=== PATIENT | male | born 1945 | race Caucasian/White ===

== ENCOUNTER 2020-09-10 17:57 | Outpatient (REF) | payer BC, SELFPAY | END 2020-09-10 17:58 | disposition home or self-care (01) | LOC: HO.LAB 17:57 | PROVIDERS: PCP Internal Medicine; Visit Provider Internal Medicine | DX: Z20.828 Contact with and (suspected) exposure to other viral communicable diseases (principal) | CPT/HCPCS: 87635 ==

== ENCOUNTER 2024-01-11 12:49 | Outpatient (AMB) | payer BC, SELFPAY ==
[2024-01-11 13:18] VITALS: BP 126/70; PULSE 59; BMI 28.5
--- NOTE | 2024-01-11 13:18 | HO.NEPHOV ---
HPI HPI Comments History of Present Illness Details I had the privilege of seeing Vitaliy in follow-up of his chronic kidney disease. He has history of hypertension and his blood pressure is well controlled on the current medication regimen. He has chronic AFib and aortic root dilatation. He is not a diabetic. He has history of coronary artery disease needing stenting. He does not have any history of congestive heart failure, CVA, SWAPNA, carotid stenosis or peripheral arterial disease. He is not a smoker. He has no history of significant proteinuria. He denies taking excess nonsteroidal anti-inflammatories. His renal functions have been stable. [facility] Medical History (Updated 01/22/24 @ 14:52 by Anjel Hernandez MD) Sinus node dysfunction Pure hypercholesterolemia Prostatism Periodic limb movement disorder Obstructive sleep apnea Essential (primary) hypertension Dyspnea on exertion Displacement of lumbar intervertebral disc without myelopathy Depressive disorder Chronic kidney disease Chronic atrial fibrillation Aortic root dilatation Abdominal aortic aneurysm Surgical History History of cholecystectomy History of coronary artery stent placement History of back surgery Family History Father Heart disease Hypertension Sister Diabetes Social History Alcohol intake: never Patient Tobacco Use Status: Former Tobacco user Vital Signs 01/11/24 13:18 Height 6 ft Weight 210 lb 6 oz BMI 28.5 BP 126/70 Blood Pressure Location Rt brachial Position Sitting Pulse 59 Pulse Source Pulse Oximeter Physical Exam Vital Signs: Last Vital Signs Pulse 59 01/11/24 13:18 BP 126/70 01/11/24 13:18 BMI result Body Mass Index 28.5 Const General: comfortable and no acute distress Orientation/consciousness: patient oriented x3 HEENT Head: Yes normocephalic Mouth: Normal oral and palatal mucosa present Eyes EOM: EOMs intact bilaterally Neck Neck: Yes supple Resp Auscultation: clear to auscultation bilaterally Cardio Jugular venous distension: no JVD Rate: regular rate GI Palpation (GI): Soft to palpation Auscultation: normal bowel sounds General: Yes no CVA tenderness Back/Spine/Pelvis Back: no CVA tenderness Skin General skin exam: no rashes or lesions noted Neuro General: patient oriented x3 and moves all extremities Extrem General: Yes no pedal edema Assessment & Plan Assessment & Plan (1) Hypertension: Code(s): I10 - Essential (primary) hypertension Qualifiers: Hypertension type: primary hypertension Qualified Code(s): I10 - Essential (primary) hypertension (2) CKD (chronic kidney disease) stage 3, GFR 30-59 ml/min: Code(s): N18.30 - Chronic kidney disease, stage 3 unspecified Qualifiers: Chronic kidney disease stage 3 subtype: stage 3a (GFR 45-59) Qualified Code(s): N18.31 - Chronic kidney disease, stage 3a Plan Vitaliy has stage III CKD from vascular disease. He is known to have coronary artery disease. His renal functions have been stable. He had Doppler of renal arteries done in the past which did not show any renal artery stenosis. He needs to follow-up with vascular surgery regarding aneurysm. His blood pressure is maintained at goal. He is on statins. I did not make any medication changes today. Follow-up blood work ordered. Answered all questions. Orders: Orders Blood Urea Nitrogen 01/11/24 N18.30 - Chronic kidney disease, stage 3 unspecified, I10 - Essential (primary) hypertension Creatinine 01/11/24 N18.30 - Chronic kidney disease, stage 3 unspecified, I10 - Essential (primary) hypertension Electrolytes 01/11/24 N18.30 - Chronic kidney disease, stage 3 unspecified, I10 - Essential (primary) hypertension Protein Creatinine Ratio, Ur 01/11/24 N18.30 - Chronic kidney disease, stage 3 unspecified, I10 - Essential (primary) hypertension Coding Level of Care Code Est Pt Level 3 (52431) Diagnoses Primary hypertension I10 Hypertension type: primary hypertension Stage 3a chronic kidney disease N18.31 Chronic kidney disease stage 3 subtype: stage 3a (GFR 45-59) Results Reviewed Nephrology Results: No Data to Display
== END 2024-01-11 13:53 | disposition home or self-care (01) ==
PROVIDERS: PCP Internal Medicine; Visit Provider Internal Medicine Nephrology
DX: I10 Essential (primary) hypertension (principal); N18.31 Chronic kidney disease, stage 3a
CPT/HCPCS: 99213

== ENCOUNTER → 2024-01-11 12:49 | Outpatient (BNVA) | payer BC, SELFPAY | PROVIDERS: PCP Internal Medicine; Visit Provider Internal Medicine Nephrology ==

== ENCOUNTER 2024-08-25 14:55 | Outpatient (AMB) | payer BC, SELFPAY ==
--- NOTE | 2024-08-25 14:59 | HO.NEPHOV_ITS ---
Vital Signs 08/25/24 15:01 Height 6 ft Weight 221 lb 4 oz BMI 30.0 BP 132/78 Blood Pressure Location Rt brachial Position Sitting Pulse 68 Pulse Source Pulse Oximeter Pulse Oximetry (%) 93 Oxygen Delivery Method Room Air Intake Visit Reasons: Rscng missed 07/11 appt- Conf Screw Machine Hand Required: No Accompanied by: Self / Same As Patient Allergies No Known Allergies Allergy (Verified 08/25/24 15:02) HPI Comments Details: I had the privilege of seeing Vitaliy in follow-up of his chronic kidney disease. He has history of hypertension and his blood pressure is well controlled on the current medication regimen. He has chronic AFib and aortic root dilatation. He is not a diabetic. He has history of coronary artery disease needing stenting. He does not have any history of congestive heart failure, CVA, SWAPNA, carotid stenosis or peripheral arterial disease. He is not a smoker. He has no history of significant proteinuria. He denies taking excess nonsteroidal anti- inflammatories. His renal functions have been stable. [facility] Medical History (Updated 01/22/24 @ 14:52 by Anjel Hernandez MD) Sinus node dysfunction Pure hypercholesterolemia Prostatism Periodic limb movement disorder Obstructive sleep apnea Essential (primary) hypertension Dyspnea on exertion Displacement of lumbar intervertebral disc without myelopathy Depressive disorder Chronic kidney disease Chronic atrial fibrillation Aortic root dilatation Abdominal aortic aneurysm Surgical History History of cholecystectomy History of coronary artery stent placement History of back surgery Family History Father Heart disease Hypertension Sister Diabetes Social History Alcohol intake: never Patient Tobacco Use Status: Former Tobacco user Review of Systems Const All systems reviewed & are unremarkable except as noted in HPI and below Physical Exam Vital Signs: Last Vital Signs Pulse 68 08/25/24 15:01 BP 132/78 08/25/24 15:01 Pulse Ox 93 08/25/24 15:01 Oxygen Delivery Method Room Air 08/25/24 15:01 BMI result Body Mass Index 30.0 Const General: comfortable and no acute distress Orientation/consciousness: patient oriented x3 HEENT Head: Yes normocephalic Mouth: Normal oral and palatal mucosa present Eyes EOM: EOMs intact bilaterally Neck Neck: Yes supple Resp Auscultation: clear to auscultation bilaterally Cardio Jugular venous distension: no JVD Rate: regular rate GI Palpation (GI): Soft to palpation Auscultation: normal bowel sounds General: Yes no CVA tenderness Back/Spine/Pelvis Back: no CVA tenderness Skin General skin exam: no rashes or lesions noted Neuro General: patient oriented x3 and moves all extremities Extrem General: Yes no pedal edema Results Reviewed Nephrology Results: No Data to Display Assessment & Plan Assessment & Plan (1) CKD (chronic kidney disease) stage 3, GFR 30-59 ml/min: Code(s): N18.30 - Chronic kidney disease, stage 3 unspecified Category: Medical Qualifiers: Chronic kidney disease stage 3 subtype: stage 3a (GFR 45-59) Qualified Code(s): N18.31 - Chronic kidney disease, stage 3a (2) Hypertension: Code(s): I10 - Essential (primary) hypertension Category: Medical Qualifiers: Hypertension type: primary hypertension Qualified Code(s): I10 - Essential (primary) hypertension Plan Vitaliy has stage III CKD from vascular disease. He is known to have coronary artery disease. His renal functions have been stable. He had Doppler of renal arteries done in the past which did not show any renal artery stenosis. He needs to follow-up with vascular surgery regarding aneurysm. His blood pressure is maintained at goal. He is on statins. I did not make any medication changes today. Follow-up blood work ordered. Answered all questions Orders: Orders Creatinine 6 Months I10 - Essential (primary) hypertension, N18.31 - Chronic kidney disease, stage 3a Electrolytes 6 Months I10 - Essential (primary) hypertension, N18.31 - Chronic kidney disease, stage 3a Blood Urea Nitrogen 6 Months I10 - Essential (primary) hypertension, N18.31 - Chronic kidney disease, stage 3a Calcium 6 Months I10 - Essential (primary) hypertension, N18.31 - Chronic kidney disease, stage 3a Coding Level of Care Code Est Pt Level 4 (89188) Diagnoses Stage 3a chronic kidney disease N18.31 Chronic kidney disease stage 3 subtype: stage 3a (GFR 45-59) Primary hypertension I10 Hypertension type: primary hypertension
[2024-08-25 15:01] VITALS: BP 132/78; PULSE 68; O2SAT 93
== END 2024-08-25 15:14 | disposition home or self-care (01) ==
PROVIDERS: PCP Internal Medicine; Visit Provider Internal Medicine Nephrology
DX: I12.9 Hypertensive chronic kidney disease with stage 1 through stage 4 chronic kidney disease, or unspecified chronic kidney disease (principal); N18.31 Chronic kidney disease, stage 3a
CPT/HCPCS: 99214

== ENCOUNTER → 2024-08-25 14:55 | Outpatient (BNVA) | payer BC, SELFPAY | PROVIDERS: PCP Internal Medicine; Visit Provider Internal Medicine Nephrology ==

== ENCOUNTER 2025-02-17 13:41 | Outpatient (REF) | payer BC, SELFPAY ==
[2025-02-17 15:07] LABS: Anion Gap 11 (12-20); Blood Urea Nitrogen 27 mg/dL (9-16); Calcium 9.9 mg/dL (8.4-10.2); Carbon Dioxide 26 mmol/L (22-29); Chloride 107 mmol/L (96-108); Estimated Glomerular Filt Rate 55; Potassium 4.5 mmol/L (3.3-5.1); Sodium 139 mmol/L (135-145)
== END 2025-02-17 13:42 | disposition home or self-care (01) ==
LOC: HO.LAB 13:41
PROVIDERS: PCP Internal Medicine; Visit Provider Internal Medicine Nephrology
DX: I12.9 Hypertensive chronic kidney disease with stage 1 through stage 4 chronic kidney disease, or unspecified chronic kidney disease (principal); N18.31 Chronic kidney disease, stage 3a
CPT/HCPCS: 36415; 80051; 82310; 82565; 84520

== ENCOUNTER 2025-02-18 13:40 | Outpatient (AMB) | payer BC, SELFPAY ==
[2025-02-18 13:44] VITALS: BP 116/60; PULSE 61; O2SAT 95; BMI 28.9
--- NOTE | 2025-02-18 13:44 | HO.NEPHOV ---
Vital Signs 02/18/25 13:44 Height 6 ft Weight 213 lb BMI 28.9 BP 116/60 Blood Pressure Location Rt brachial Position Sitting Pulse 61 Pulse Source Pulse Oximeter Pulse Oximetry (%) 95 Oxygen Delivery Method Room Air Intake Visit Reasons: CKD-Conf Guidance Counselor Required: No Accompanied by: Self / Same As Patient Allergies No Known Allergies Allergy (Verified 02/18/25 13:44) HPI Comments Details: Vitaliy was seen in follow-up of his chronic kidney disease. He has history of hypertension and his blood pressure is well controlled on the current medication regimen. He has chronic AFib and aortic root dilatation. He is not a diabetic. He has history of coronary artery disease needing stenting. He does not have any history of congestive heart failure, CVA, SWAPNA, carotid stenosis or peripheral arterial disease. He is not a smoker. He has no history of significant proteinuria. He denies taking excess nonsteroidal anti-inflammatories. His renal functions have been stable. [facility] Medical History (Updated 01/22/24 @ 14:52 by Anjel Hernandez MD) Sinus node dysfunction Pure hypercholesterolemia Prostatism Periodic limb movement disorder Obstructive sleep apnea Essential (primary) hypertension Dyspnea on exertion Displacement of lumbar intervertebral disc without myelopathy Depressive disorder Chronic kidney disease Chronic atrial fibrillation Aortic root dilatation Abdominal aortic aneurysm Surgical History History of cholecystectomy History of coronary artery stent placement History of back surgery Family History Father Heart disease Hypertension Sister Diabetes Social History Alcohol intake: never Patient Tobacco Use Status: Former Tobacco user Review of Systems Const All systems reviewed & are unremarkable except as noted in HPI and below Physical Exam Vital Signs: Last Vital Signs Pulse 61 02/18/25 13:44 BP 116/60 02/18/25 13:44 Pulse Ox 95 02/18/25 13:44 Oxygen Delivery Method Room Air 02/18/25 13:44 BMI result Body Mass Index 28.9 Const General: comfortable and no acute distress Orientation/consciousness: patient oriented x3 HEENT Head: Yes normocephalic Mouth: Normal oral and palatal mucosa present Eyes EOM: EOMs intact bilaterally Neck Neck: Yes supple Resp Auscultation: clear to auscultation bilaterally Cardio Jugular venous distension: no JVD Rate: regular rate GI Palpation (GI): Soft to palpation Auscultation: normal bowel sounds General: Yes no CVA tenderness Back/Spine/Pelvis Back: no CVA tenderness Skin General skin exam: no rashes or lesions noted Neuro General: patient oriented x3 and moves all extremities Extrem General: Yes no pedal edema Results Reviewed Nephrology Results: Sodium 139 mmol/L (135-145) 02/17/25 Potassium 4.5 mmol/L (3.3-5.1) 02/17/25 Chloride 107 mmol/L (96-108) 02/17/25 Carbon Dioxide 26 mmol/L (22-29) 02/17/25 BUN 27 mg/dL (9-16) H 02/17/25 Creatinine 1.26 mg/dL (0.5-1.4) 02/17/25 Calcium 9.9 mg/dL (8.4-10.2) 02/17/25 Assessment & Plan Assessment & Plan (1) CKD (chronic kidney disease) stage 3, GFR 30-59 ml/min: Code(s): N18.30 - Chronic kidney disease, stage 3 unspecified Category: Medical Qualifiers: Chronic kidney disease stage 3 subtype: stage 3a (GFR 45-59) Qualified Code(s): N18.31 - Chronic kidney disease, stage 3a (2) Hypertension: Code(s): I10 - Essential (primary) hypertension Category: Medical Qualifiers: Hypertension type: primary hypertension Qualified Code(s): I10 - Essential (primary) hypertension Plan Vitaliy has stage III CKD from vascular disease. He is known to have coronary artery disease. His renal functions have been stable. He had Doppler of renal arteries done in the past which did not show any renal artery stenosis. He needs to follow-up with vascular surgery regarding aneurysm. His blood pressure is maintained at goal. He is on statins. I did not make any medication changes today. Follow-up blood work ordered. Answered all questions Orders: Orders Blood Urea Nitrogen 6 Months I10 - Essential (primary) hypertension, N18.31 - Chronic kidney disease, stage 3a Electrolytes 6 Months I10 - Essential (primary) hypertension, N18.31 - Chronic kidney disease, stage 3a Creatinine 6 Months I10 - Essential (primary) hypertension, N18.31 - Chronic kidney disease, stage 3a Calcium 6 Months I10 - Essential (primary) hypertension, N18.31 - Chronic kidney disease, stage 3a Protein Creatinine Ratio, Ur 6 Months I10 - Essential (primary) hypertension, N18.31 - Chronic kidney disease, stage 3a Coding Level of Care Code Est Pt Level 4 (62207) Diagnoses Stage 3a chronic kidney disease N18.31 Chronic kidney disease stage 3 subtype: stage 3a (GFR 45-59) Primary hypertension I10 Hypertension type: primary hypertension
--- OUTSIDE RECORDS SUMMARY | 2025-02-18 16:18 | XMS_ITS | Clinical Summary ---
Author Organization [address] Address [address] [place] [id number] Phone Care Team Providers Care Tube Coater Name Role Phone Mustapha Gonzalez MD Primary Care Provider [phone] Medications atorvastatin (LIPITOR) 80 mg tabletIndications:C oronary artery disease involving [place] coronary artery of [place] heart without angina pectoris,Hyperlipid emia, unspecified hyperlipidemia type Take 1 tablet (80 mg total) by mouth 1 (one) time each day. 90 each 3 4 10/28/20 25 Active Surgical History Surgery Date Site/Laterality Comments COLONOSCOPY 02/20/2018 PROCEDURE: HISTORICAL COLONOSCOPY; COMMENT: multiple adenomas; tics and hemorrhoids; repeat in 3 yrs UPPER GASTROINTESTINAL ENDOSCOPY 02/20/2018 PROCEDURE: [place] UPPER GI ENDOSCOPY PERFORMED; COMMENT: distal erosive esophagitis; esophageal diverticum; gastric bxys neg for H. pylori/significant gastritis COLONOSCOPY 09/11/2011 PROCEDURE: HISTORICAL COLONOSCOPY; COMMENT: small polyp at 50 cm: Tubular adenoma. CHOLECYSTECTOMY 05/16/2018 PROCEDURE: LAPAROSCOPY, CHOLECYSTECTOMY; COMMENT: Dr. Fontaine Medical History Medical History Date Comments Pure hypercholesterolemia 01/25/2006 DX:Pur e hypercholesterolemia Personal history of colonic polyps DX:Personal history of colonic polyps Anxiety disorder in conditio ns classified elsewhere DX:Anxiety disorder in condi tions classified elsewhere Other specified cardiac dysrhythmias(427.89) DX:Other specified cardiac dysrhythmias(427.89); COMMENT: bradycardia, Holter (-) 07/30 Depressive disorder, not els ewhere classified 01/23/2007 DX:Depressive disorder, not elsewhere classified Allergy, unspecified not els ewhere classified 04/18/2007 DX:Allergy, unspecified not elsewhere classified Sinoatrial node dysfunction (CMS/HCC) 07/19/2007 DX:Sinoatrial node dysfunction (HCC); COMMENT: Lam elena, CARDIOLOGY SAW PT 2003 Family History Medical History Relation Name Comments Heart attack Father age 53 Other: ETOH liver disease Mother Other: arthritis, liver failure from medication Sister 1 Arthritis Sister 2 hx TKR's Relation Name Status Comments Father Mother Sister 1 Sister 2 Social History Tobacco Use Types Packs/Day Years Used Date Smoking Tobacco: Former Cigarettes 1 54.7 0 [birth year]/26/1954 - 07/27/2009 Smokeless Tobacco: Never Alcohol Use Standard Drinks/Week Comments No 0 (1 standard drink = 0.6 oz pur e alcohol) Sex and Gender Information Value Date Recorded Sex Assigned at Male 11/28/2024 11:45 AM EST Legal Sex Male 8:09 AM EST Gender Identity Male 11/28/2024 11:45 AM EST Sexual Orientation Straight 11/28/2024 11 :45 AM EST Obstetrics History Last Filed Vital Signs Vital Sign Reading Time Taken Comments Blood Pressure 120/68 07/30/2024 9:43 AM EDT Sit ting L Arm Pulse 54 07/30/2024 9:43 AM EDT Temperature - - Respiratory Rate - - Oxygen Saturation - - Inhaled Oxygen Concentration - - Weight 99.8 kg (220 lb) 07/30/2024 9:43 AM EDT Height 182.9 cm (6') 07/30/2024 9:43 AM EDT Body Mass Index 29.84 07/30/2024 9:43 AM EDT Plan of Treatment Health Maintenance Due Date Last Done Comments Zoster Vaccines (2 of 3) 09/15/2013 07/21/2013 RSV Immunization Patients 60+ Years Old (1 - 1-dose 75+ series) 2018 Depression Screening 11/04/2022 Falls Risk Assessment 11/04/2022 Social Influencers of Health Screening 11/04/2022 COVID-19 Vaccine ( season) 2024 11/08/2021, 04/20/2021, 03/16/2021 Influenza Vaccine (#1) 2024 , 08/31/2022, 10/10/2021, Additional history exists Hypertension/CHF/CAD Annual BMP Blood Test 07/30/2025 07/30/2024 DTaP,Tdap,and Td Vaccines (3 - Td or Tdap) 12/19/2029 12/19/2019, 12/09/2008 Cholesterol Screening (Lipid Panel) 01/29/2030 01/29/2025, 10/28/2024, 07/30/2024 Pneumococcal Vaccine: 50+ Years Completed 11/08/2018, 10/24/2011, 06/24/2003 HIB Vaccines Aged Out No longer eligi ble based on patient's age to complete this topic HPV Vaccines Aged Out No longer eligi ble based on patient's age to complete this topic Hepatitis A Vaccines Aged Out No long er eligible based on patient's age to complete this topic Hepatitis B Vaccines Aged Out No long er eligible based on patient's age to complete this topic IPV Vaccines Aged Out No longer eligi ble based on patient's age to complete this topic MMR Vaccines Aged Out No longer eligi ble based on patient's age to complete this topic Meningococcal ACWY Vaccine Aged Out N o longer eligible based on patient's age to complete this topic Meningococcal B Vacine Aged Out No lo nger eligible based on patient's age to complete this topic RSV Immunization Patients Under 20 months Aged Out No longer eligible based on patient's age to complete this topic Varicella Vaccines Aged Out No longer eligible based on patient's age to complete this topic Procedures Procedure Name Priority Date/Time Associated Diagnosis Comments LIPID PANEL WITH REFLEX TO DIRECT LDL Routine 01/29/2025 9:15 AM EST Coronary artery disease involving [place] coronary artery of [place] heart without angina pectoris Hyperlipidemia, unspecified hyperlipidemia type from Last 3 Months Results * Lipid panel with reflex to direct LDL (01/29/2025 9:15 AM EST) Cholesterol 135 0 - 200 mg/dL LAB CHEMISTRY METHOD 01/29/2025 1:05 PM [facility] Triglycerides 70 0 - 150 mg/dL LAB CHEMISTRY METHOD 01/29/2025 1:05 PM [facility] HDL 50 >=40 mg/dL LAB CHEMISTRY METHOD 01/29/2025 1:05 PM EST [facility] LDL Calculated 71 0 - 100 mg/dL LAB CHEMISTRY METHOD 01/29/2025 1:05 PM EST [facility] VLDL Cholesterol Jason 14 mg/dL LAB CHEMISTRY METHOD 01/29/2025 1:05 PM EST [facility] Non HDL Chol. (LDL+VLDL) 85 <145 mg/dL LAB CHEMISTRY METHOD 01/29/2025 1:05 PM [facility] Chol/HDL Ratio 2.7 0.0 - 4.4 LAB CHEMISTRY METHOD 01/29/2025 1:05 PM EST [facility] Blood Venous blood specimen / Unknown Venipuncture / Unknown 01/29/2025 9:15 AM EST 01/29/2025 9:15 AM EST Larisa Pacheco OB TECH LAB BLOOD ORDERABLES Final Result Performing Organization Address City/State/[facility] Co de Phone Number [facility] [address] [place] [address], from Last 3 Months Insurance [facility] MEDICARE Care Teams Tube Coater Relationship Specialty Start Date End Date Mustapha Gonzalez MD [address] [place] [id number] PCP - General 11/09/22
--- OUTSIDE RECORDS SUMMARY | 2025-02-18 16:18 | XMS_ITS | Clinical Summary ---
Author Organization [facility] Address [address] [address] Phone Care Team Providers Care Radiologist Diagnostic Name Role Phone Jack Ahumada MD Primary Care Provider [phone] Allergies No known active allergies Medications amLODIPine (NORVASC) 5 MG tablet Take 5 mg by mouth 1 (one) time each day Active atorvastatin (LIPITOR) 40 MG tablet Take 1 tablet by mouth 1 (one) time each day 2 Active fluticasone (FLONASE) 50 MCG/ACT nasal spray Administer 100 mcg into affected nostril(s) 1 Active FLUoxetine (PROzac) 10 MG capsule Take 1 capsule by mouth 1 (one) time each day 2 Active rivaroxaban (XARELTO) 15 MG tablet Take 15 mg by mouth 1 (one) time each day 2 Active clopidogrel (PLAVIX) 75 MG tablet Take 75 mg by mouth 1 (one) time each day 2 Active buPROPion (ZYBAN) 150 MG 12 hr tablet Take 150 mg by mouth 1 (one) time each day Do not crush, chew, or split. Active Coenzyme Q10 100 MG tablet Take 100 mg by mouth 1 (one) time each day Active Multiple Vitamin (multivitamin) tablet Take 1 tablet by mouth 1 (one) time each day Active traMADol (ULTRAM) 50 MG tablet Take 1 tablet by mouth if needed 3 Active Active Problems Problem Noted Date Diagnosed Date Stage 3a chronic kidney disease 01/11/2023 Hypertension 10/03/2022 Coronary arteriosclerosis 09/11/2022 Overview (10/03/2022): Last Assessment & Plan: S/p PCI to RCA x2. Continue Plavix, he is also on Xarelto. He will be starting cardiac rehab at [facility] in the near future, referral sent. History of cardiac catheterization 09/11/2022 Overview (10/03/2022): Done at [facility] [place] on 08/07/22 with ALBA - indications: Abnormal stress treadmill study, VUONG Ex-smoker 06/15/2022 Stage 3 chronic kidney disease 11/08/2018 Hypertensive disorder 2011 Resolved Problems Problem Noted Date Diagnosed Date Resolved Date Aortic root dilatation 01/12/202108/14 Dyspnea on exertion 01/12/2021 08/14/20 Aneurysm of ascending aorta 07/22/2020 08/14/2022 Prostatism 06/23/2019 08/14/2022 Chronic atrial fibrillation 02/12/2018 08/14/2022 Obstructive sleep apnea 07/08/201707/27 Overview (08/14/2022): [facility]: Date 07/03/2017; Wt 200# SE 83%; SM 96%; REM 27%; RDI 14 (AHI 10), worse in REM (RDI 21 - AHI 17), Central apneas 18; Obstructive apneas 10; Mixed apneas 0; hypopneas 34; RERAs 30; average oxygen saturation 93% (lowest 84% - without saturations <88% for 5% or more of study); PLMs 39. [facility] Polysomnogram treatment study. Date 02/11/2018 . SE 34 % SM 37 %; spent 0 % of the study in REM. On CPAP - central apnea emergence; on CPAP 10 best of study: RDI 10.5 (AHI 10.5), Central apneas 0; Obstructive apneas 0; Mixed apneas 0; hypopneas 4; RERAs 0; and, average oxygen saturation was 95%. For the entire study, PLMs ~46. [facility] Polysomnogram ASV treatment study. Date 05/27/2018. SE 39 % SM 42 %; spent 0 % of the study in REM. On ASV; RDI 10.4 (AHI 5.9), Central apneas 5; Obstructive apneas 0; Mixed apneas 0; hypopneas 8; RERAs 10; and, average oxygen saturation was 95%. For the entire study, PLMs ~157. Periodic limb movement disorder 07/08/2017 08/14/2022 Abdominal aortic aneurysm 10/22/2012 Overview (08/14/2022): Follows with Dr. Rankin, 3.2cm Displacement of lumbar inter vertebral disc without myelopathy 11/17/2011 08/14/2022 Overview (08/14/2022): S/p disksectomy, Dr. Marquez Sinus node dysfunction 07/19/200708/14 Overview (08/14/2022): RAN elena, CARDIOLOGY SAW PT 2004 Depressive disorder 01/23/2007 08/14/20 22 Overview (08/14/2022): Does not respond to welbutrin. SSRI caused sexual dysfunction Pure hypercholesterolemia 01/25/2006 Immunizations Name Administration Dates Next Due H1N1 Inj Preservative Free 11/25/2009 Influenza Split High Dose Pr eservative Free IM 10/10/2021,09/28/2019,08/25/2018,09/02,08/12/2016,08/12/2015 Pneumococcal Conjugate 13-Valent 11/08/2018 Pneumococcal Polysaccharide 10/24/2011, 3 Tdap 12/09/2008 Zoster 07/21/2013 Family History Medical History Relation Comments Heart disease Father Hypertension Father Diabetes Sister Relation Status Comments Father Mother Sister Social History Tobacco Use Types Packs/Day Years Used Date Smoking Tobacco: Former Cigarettes Smokeless Tobacco: Never Tobacco Cessation:Counseling Given: Not Answered Alcohol Use Standard Drinks/Week Comments Never 0 (1 standard drink = 0.6 oz pur e alcohol) Sex and Gender Information Value Date Recorded Sex Assigned at Not on file Legal Sex Male 1:38 PM EDT Gender Identity Not on file Sexual Orientation Not on file Last Filed Vital Signs Vital Sign Reading Time Taken Comments Blood Pressure 120/82 07/17/2023 2:17 PM EDT Pulse 60 07/17/2023 2:17 PM EDT Temperature - - Respiratory Rate - - Oxygen Saturation - - Inhaled Oxygen Concentration - - Weight 100 kg (220 lb 6.4 oz) 07/17/2023 2:17 PM EDT Height - - Body Mass Index - - Plan of Treatment Health Maintenance Due Date Last Done Comments Influenza Vaccine (#1) 2024 , 09/28/2019, 08/25/2018, Additional history exists Pneumococcal Vaccine: 65+ Years Completed 11/08/2018, 10/24/2011, 06/24/2003 Hepatitis B Vaccine Aged Out No longe r eligible based on patient's age to complete this topic Insurance [facility] Care Teams Radiologist Diagnostic Relationship Specialty Start Date End Date Jack Ahumada MD [address] [place] [id number] PCP - General Internal Medicine 10/03/22
== END 2025-02-18 13:56 | disposition home or self-care (01) ==
LOC: HO.HKA 13:41
PROVIDERS: PCP Internal Medicine; Visit Provider Internal Medicine Nephrology
DX: N18.31 Chronic kidney disease, stage 3a (principal); I10 Essential (primary) hypertension
CPT/HCPCS: 99214

== ENCOUNTER 2025-08-21 13:31 | Outpatient (AMB) | payer BC, SELFPAY ==
--- OUTSIDE RECORDS SUMMARY | 2025-07-13 08:03 | XMS_ITS ---
Author Organization [facility] Address [address] [place] [address] [phone] Care Team Providers Care Hoop Punch And Coiler Operator Name Role Phone LUCRECIA CALDERON Primary Care Provider [phone] REASON FOR VISIT rtd call Encounters Encounter Location Date Provider Diagnosis [facility] [address] [facility] [place] [address] 07/13/2025 LUCRECIA CALDERON PLAN OF TREATMENT No Information
--- OUTSIDE RECORDS SUMMARY | 2025-07-13 10:00 | XMS_ITS ---
Author Organization [facility] Address [address] [place] [phone] Care Team Providers Care Mouthpiece Maker Name Role Phone LUCRECIA CALDERON Primary Care Provider [phone] ALLERGIES No Known Allergies REASON FOR VISIT go over test results MEDICATIONS Medication SIG (Take, Route, Frequency, Duration) Notes Start Date End Date Status Tamsulosin HCl 0.4 MG 1 capsule Orally O nce a day for 30 day(s) 07/13/2025 Active Fluticasone Propionate 50 MCG/ACT spray 2 spray by intranasal route every day in each nostril Nasal 05/11/2022 Active amLODIPine Besylate 5 MG 1 tablet Orally Once a day Active Magnesium 125 MG as directed Orally Active traMADol HCl 50 MG 1 tablet as needed O rally every 8 hrs for 10 days 04/16/2025 Active FLUoxetine HCl 10 MG 1 capsule Orally On ce a day for 90 days Active Atorvastatin Calcium 80 MG 1 tablet Oral ly Once a day for 90 day(s) 12/03/2024 Active Xarelto 15 MG 1 tablet with food O rally Once a day for 90 days Active buPROPion HCl ER (XL) 150 MG 1 tablet in the morning Orally Once a day for 180 days Active OneTouch Verio - as directed In Vitro once a day for 90 days 01/22/2024 Active Atorvastatin Calcium 80 MG 1 tablet Oral ly Once a day Active OneTouch Verio Flex System w/Device as directed applied to skin once a day for 90 day(s) 01/22/2024 Active OneTouch Delica Plus [id number] - as directed applied to skin once a day for 90 days 01/22/2024 Active Ketoconazole 2 % as directed External ly twice a week for 30 day(s) 01/22/2024 Active SOCIAL HISTORY Tobacco Use: Social History Observation Description Date Details (start date - stop date) Never Smoker NA - NA Sex Assigned At : Social History Observation Description Sex Assigned At Unknown Smoking Question Answer Notes Are you a: never smoker VITAL SIGNS Height 72.00 in 07/13/2025 Weight 215 lbs 07/13/2025 Blood pressure systolic 118 mm Hg 07/13/20 25 Blood pressure diastolic 76 mm Hg 025 BMI 29.16 kg/m2 07/13/2025 Encounters Encounter Location Date Provider Diagnosis [facility] [address] [place] [address] 07/13/2025 LUCRECIA CALDERON Mediastinal mass J98.59 ; Kidney stone N20.0 ; Aneurysm of ascending aorta without rupture I71.21 ; Saccular aneurysm I67.1 ; Essential (primary) hypertension I10 and Paroxysmal atrial fibrillation I48.0 ASSESSMENTS Encounter Date Diagnosis Assessment Notes Treatment Notes Treatment Clinical Notes Section Notes 07/13/2025 Mediastinal mass (ICD-10 - J98.59) 1. Mediastinal mass/paratrachea l lymph node. Will pursue PET scan as recommended by radiology. There is no other recent imaging of his chest 2. Kidney stone: Will start Flomax to see if this assists with passage. Will await urology recommendations next week 3. Thoracic aortic aneurysm: This appears stable in size compared to last year's echo. Will continue to follow 4. Saccular aortic aneurysm: Surgical consultation was recommended. This has been arranged for next week 5. Paroxysmal atrial fibrillation: No obvious recurrence. Continues on Xarelto 07/13/2025 Kidney stone (ICD-10 - N20.0) 1. Mediastinal mass/paratrachea l lymph node. Will pursue PET scan as recommended by radiology. There is no other recent imaging of his chest 2. Kidney stone: Will start Flomax to see if this assists with passage. Will await urology recommendations next week 3. Thoracic aortic aneurysm: This appears stable in size compared to last year's echo. Will continue to follow 4. Saccular aortic aneurysm: Surgical consultation was recommended. This has been arranged for next week 5. Paroxysmal atrial fibrillation: No obvious recurrence. Continues on Xarelto 07/13/2025 Aneurysm of ascending aorta without rupture (ICD-10 - I71.21) 1. Mediastinal mass/paratrachea l lymph node. Will pursue PET scan as recommended by radiology. There is no other recent imaging of his chest 2. Kidney stone: Will start Flomax to see if this assists with passage. Will await urology recommendations next week 3. Thoracic aortic aneurysm: This appears stable in size compared to last year's echo. Will continue to follow 4. Saccular aortic aneurysm: Surgical consultation was recommended. This has been arranged for next week 5. Paroxysmal atrial fibrillation: No obvious recurrence. Continues on Xarelto 07/13/2025 Saccular aneurysm (ICD-10 - I67.1) 1. Mediastinal mass/paratrachea l lymph node. Will pursue PET scan as recommended by radiology. There is no other recent imaging of his chest 2. Kidney stone: Will start Flomax to see if this assists with passage. Will await urology recommendations next week 3. Thoracic aortic aneurysm: This appears stable in size compared to last year's echo. Will continue to follow 4. Saccular aortic aneurysm: Surgical consultation was recommended. This has been arranged for next week 5. Paroxysmal atrial fibrillation: No obvious recurrence. Continues on Xarelto 07/13/2025 Essential (primary) hypertension (ICD-10 - I10) 1. Mediastinal mass/paratrachea l lymph node. Will pursue PET scan as recommended by radiology. There is no other recent imaging of his chest 2. Kidney stone: Will start Flomax to see if this assists with passage. Will await urology recommendations next week 3. Thoracic aortic aneurysm: This appears stable in size compared to last year's echo. Will continue to follow 4. Saccular aortic aneurysm: Surgical consultation was recommended. This has been arranged for next week 5. Paroxysmal atrial fibrillation: No obvious recurrence. Continues on Xarelto 07/13/2025 Paroxysmal atrial fibrillation (ICD-10 - I48.0) 1. Mediastinal mass/paratrachea l lymph node. Will pursue PET scan as recommended by radiology. There is no other recent imaging of his chest 2. Kidney stone: Will start Flomax to see if this assists with passage. Will await urology recommendations next week 3. Thoracic aortic aneurysm: This appears stable in size compared to last year's echo. Will continue to follow 4. Saccular aortic aneurysm: Surgical consultation was recommended. This has been arranged for next week 5. Paroxysmal atrial fibrillation: No obvious recurrence. Continues on Xarelto PLAN OF TREATMENT Medication Medication Name Sig Start Date Stop Date Notes Tamsulosin HCl 0.4 MG 1 capsule Orally O nce a day for 30 day(s) 07/13/2025 Progress Notes * Examination Category Sub-Category Detail Notes Category Not es General Examination Heart: RSR, normal S1S2 Lungs: clear to auscultatio n Extremities: no edema General Appearance no apparent distress , pleasant Psych: alert, oriented X 3 Other normal affect History and Physical Notes * HPI (History of Present Illness) Category Sub-Category Detail Notes Category Not es General Patient present s for follow-up testing. He has an appointment with vascular next Sunday for his saccular aortic aneurysm. He has an appointment with urology regarding kidney stone. He is still having some crampy right sided abdominal pain intermittently. He is not having any further nausea or vomiting. Today we also reviewed his CT scan of his chest.
--- OUTSIDE RECORDS SUMMARY | 2025-07-31 06:55 | XMS_ITS ---
Author Organization [facility] Address [address] [place] [address] [phone] Care Team Providers Care Med Spec Name Role Phone LUCRECIA CALDERON Primary Care Provider REASON FOR VISIT PET Scan Order Encounters Encounter Location Date Provider Diagnosis [facility] [address] [place] [address] 07/31/2025 LUCRECIA CALDERON Mediastinal mass J98.59 ASSESSMENTS Encounter Date Diagnosis Assessment Notes Treatment Notes Treatment Clinical Notes Section Notes 07/31/2025 Mediastinal mass (ICD-10 - J98.59) PLAN OF TREATMENT No Information
--- OUTSIDE RECORDS SUMMARY | 2025-08-05 05:33 | XMS_ITS ---
Author Organization [facility] Address [address] [place] [phone] Care Team Providers Care Wholesale Parts Salesperson Name Role Phone LUCRECIA CALDERON Primary Care Provider REASON FOR VISIT (2) PET Scan Results Encounters Encounter Location Date Provider Diagnosis [facility] [address] [place] [address] 08/05/2025 LUCRECIA CALDERON PLAN OF TREATMENT No Information
--- OUTSIDE RECORDS SUMMARY | 2025-08-05 11:45 | XMS_ITS ---
Author Organization [facility] [facility] Address [address] [place] [phone] Care Team Providers Care Rail Signal Worker Name Role Phone LUCRECIA CALDERON Primary Care Provider ALLERGIES No Known Allergies REASON FOR REFERRAL Reason 08/06/25 w appt Urge nt eval Abnormal PET scAN please send ct scan and PET Diagnosis 1 Lymphadenopathy (R59 .1) Referral Organization [facility] Referring Provider First Name LUCRECIA Referring Provider Last Name YUMIKO Referring Provider Speciality Internal M edicine Referred Provider DREW CAMPBELL Referred Provider Specialty Hematology/O ncology General Notes HOLD, ANU,Paulina P Adm in 08/05/2025 04:17:00 PM > faxed medical referral, note and most recent labs to [phone] requesting a STAT appt please>also faxed is, 07/04/25CTChest, 07/04/25CTAbd/Pelvis, NO REFERRAL REQUIRED Referral Priority Stat REASON FOR VISIT f/u PET scan, discuss flu vacc MEDICATIONS Medication SIG (Take, Route, Frequency, Duration) Notes Start Date End Date Status Fluticasone Propionate 50 MCG/ACT spray 2 spray by intranasal route every day in each nostril Nasal 05/11/2022 Active Magnesium 125 MG as directed Orally Active OneTouch Delica Plus [id number] - as directed applied to skin once a day for 90 days 01/22/2024 Active Ketoconazole 2 % as directed External ly twice a week for 30 day(s) 01/22/2024 Active Xarelto 15 MG 1 tablet with food O rally Once a day for 90 days Active Atorvastatin Calcium 80 MG 1 tablet Oral ly Once a day for 90 day(s) 12/03/2024 Active FLUoxetine HCl 10 MG 1 capsule Orally On ce a day for 90 days Active traMADol HCl 50 MG 1 tablet as needed O rally every 8 hrs for 10 days 04/16/2025 Active amLODIPine Besylate 5 MG 1 tablet Orally Once a day Active OneTouch Verio - as directed In Vitro once a day for 90 days 01/22/2024 Active buPROPion HCl ER (XL) 150 MG 1 tablet in the morning Orally Once a day for 180 days Active Tamsulosin HCl 0.4 MG 1 capsule Orally O nce a day 07/13/2025 Active OneTouch Verio Flex System w/Device as directed applied to skin once a day for 90 day(s) 01/22/2024 Active SOCIAL HISTORY Tobacco Use: Social History Observation Description Date Details (start date - stop date) Former Smoker NA - NA Sex Assigned At : Social History Observation Description Sex Assigned At Unknown Smoking Question Answer Notes Are you a: former smoker How long has it been since you last smoked? > 10 years PROBLEMS Problem Type ICD Code Onset Dates Problem Status W/U Status Risk SNOMED Code Notes Problem Enlarged prostate (N40.0) Active confirmed [id number] VITAL SIGNS Height 72.00 in 08/05/2025 Weight 216.0 lbs 08/05/2025 Blood pressure systolic 124 mm Hg 08/05/20 25 Blood pressure diastolic 84 mm Hg 025 BMI 29.29 kg/m2 08/05/2025 Encounters Encounter Location Date Provider Diagnosis [facility] [address] [place] [address] 08/05/2025 [facility] Lymphadenopathy R59. 1 ; Enlarged prostate N40.0 ; Kidney stone N20.0 and Saccular aneurysm I67.1 ASSESSMENTS Encounter Date Diagnosis Assessment Notes Treatment Notes Treatment Clinical Notes Section Notes 08/05/2025 Lymphadenopathy (ICD-10 - R59.1) 1. Lymphadenopathy : ? possible lymphoma -mildly + PEt on paratracheal node - some nodes lighting up in neck ? not large enough to biopsy. Will refer to Heme/onc for guidance 2. enlarged Prostate - also lighting up on PET Scan Discussed pitfalls of PSA Will discuss with Oncology as welland consider whether wants to pursue further 3. Kidney stone: Urology agreed with Flomax and will recheck scan in several months. If not passed it we will consider retrieval/litho tripsy then 4. Saccular aortic aneurysm: Vascular reviewed and recommended 6-month follow-up. He did not feel he needed surgery at this time 08/05/2025 Enlarged prostate (ICD-10 - N40.0) 1. Lymphadenopathy : ? possible lymphoma -mildly + PEt on paratracheal node - some nodes lighting up in neck ? not large enough to biopsy. Will refer to Heme/onc for guidance 2. enlarged Prostate - also lighting up on PET Scan Discussed pitfalls of PSA Will discuss with Oncology as welland consider whether wants to pursue further 3. Kidney stone: Urology agreed with Flomax and will recheck scan in several months. If not passed it we will consider retrieval/litho tripsy then 4. Saccular aortic aneurysm: Vascular reviewed and recommended 6-month follow-up. He did not feel he needed surgery at this time 08/05/2025 Kidney stone (ICD-10 - N20.0) 1. Lymphadenopathy : ? possible lymphoma -mildly + PEt on paratracheal node - some nodes lighting up in neck ? not large enough to biopsy. Will refer to Heme/onc for guidance 2. enlarged Prostate - also lighting up on PET Scan Discussed pitfalls of PSA Will discuss with Oncology as welland consider whether wants to pursue further 3. Kidney stone: Urology agreed with Flomax and will recheck scan in several months. If not passed it we will consider retrieval/litho tripsy then 4. Saccular aortic aneurysm: Vascular reviewed and recommended 6-month follow-up. He did not feel he needed surgery at this time 08/05/2025 Saccular aneurysm (ICD-10 - I67.1) 1. Lymphadenopathy : ? possible lymphoma -mildly + PEt on paratracheal node - some nodes lighting up in neck ? not large enough to biopsy. Will refer to Heme/onc for guidance 2. enlarged Prostate - also lighting up on PET Scan Discussed pitfalls of PSA Will discuss with Oncology as welland consider whether wants to pursue further 3. Kidney stone: Urology agreed with Flomax and will recheck scan in several months. If not passed it we will consider retrieval/litho tripsy then 4. Saccular aortic aneurysm: Vascular reviewed and recommended 6-month follow-up. He did not feel he needed surgery at this time PLAN OF TREATMENT Medication Medication Name Sig Start Date Stop Date Notes Tamsulosin HCl 0.4 MG 1 capsule Orally Once a day 07/13/20 25 Referrals Referral Date Details 08/06/25 w appt Urge nt eval Abnormal PET scAN please send ct scan and PET, DREW CAMPBELL Progress Notes * Examination Category Sub-Category Detail Notes Category Not es General Examination Heart: RSR, normal S1S2 Lungs: clear to auscultatio n Extremities: no edema General Appearance no apparent distress , pleasant, overweight Psych: alert, oriented X 3 Other normal affect History and Physical Notes * HPI (History of Present Illness) Category Sub-Category Detail Notes Category Not es General Patient here fo f/u PET scan. Patient is feeling about the same. He is having episodic pain related to the kidney stone. Supposed to have repeat scan in 2-3 months. Continued on Flomax at present. Saw [facility] as well - repeat scan in 6 months recommneded Consultation Request Notes Referral Date Referring Provider Referred Provider Not es 08/05/2025 LUCRECIA CALDERON AGNES 08/06/25 w appt Urgent eval Abnormal PET scAN please send ct scan and PET
--- OUTSIDE RECORDS SUMMARY | 2025-08-21 10:45 | XMS_ITS | Encounter Summary ---
Author Organization [facility] Address [address] [place] [address] Care Team Providers Care Physical Security Manager Name Role Phone Jack Ahumada MD Primary Care Provider Reason for Referral * Consultation (Routine) - Pending Review Specialty Diagnoses / Procedures Referred By Contac t Referred To Contact Thoracic Surgery Diagnoses Lymphadenopathy Abnormal positron emission tomography (PET) scan Shahbaz George MD [address] [place] [address] Phone: tel: fax: Thom Alston MD [address] [address] Phone: tel: fax: Referral ID Status Reason Start Date Expiration Date Visits Requested Visits Authorized [id number] Pending Review Specialty Services Required 08/21/2025 08/21/2026 1 1 Reason for Visit * Reason Comments Consult * Consultation (Routine) - Authorized Specialty Diagnoses / Procedures Referred By Contac t Referred To Contact Hematology and Oncology Diagnoses Lymphadenopathy Abnormal positron emission tomography (PET) scan Jack Ahumada MD [address] [place] [id number] Phone: tel: fax: Referral ID Status Reason Start Date Expiration Date Visits Requested Visits Authorized [id number] Authorized Specialty Services Required 08/07/2025 08/07/2026 1 1 Encounter Details Date Type Department Care Team (Late st Contact Info) Description 08/21/2025 10:45 AM EDT Office Visit [facility] Hematology Oncology [address] [place] [address] Shahbaz George MD [address] [place] [address] Lymphadenopathy; Abnormal positron emission tomography (PET) scan Social History Tobacco Use Types Packs/Day Years Used Date Smoking Tobacco: Former Cigarettes 1 54.7 0 11/26/1954 - 07/27/2009 Smokeless Tobacco: Never Alcohol Use Standard Drinks/Week Comments Yes 0 (1 standard drink = 0.6 oz pur e alcohol) occasional Sex and Gender Information Value Date Recorded Sex Assigned at Male 11/28/2024 11:45 AM EST Legal Sex Male 8:09 AM EST Gender Identity Male 11/28/2024 11:45 AM EST Sexual Orientation Straight 11/28/2024 11 :45 AM EST documented as of this encounter Last Filed Vital Signs Vital Sign Reading Time Taken Comments Blood Pressure 109/75 08/21/2025 10:47 AM EDT Pulse 79 08/21/2025 10:47 AM EDT Temperature 36.6 C (97.8 F) 08/21/2025 10:47 AM EDT Respiratory Rate - - Oxygen Saturation 93% 08/21/2025 10:47 AM EDT Inhaled Oxygen Concentration - - Weight 97.1 kg (214 lb) 08/21/2025 10:47 AM EDT Height 182.9 cm (6') 08/21/2025 10:47 AM EDT Body Mass Index 29.02 08/21/2025 10:47 AM EDT documented in this encounter Progress Notes * Shahbaz George MD - 08/21/2025 10:45 AM EDT ONC CANCER INITIAL VISIT Dear Jack, Thank you very much for referring this patient for consultation. HPI: Patient is a very pleasant 80-year-old man, who was having some renal colic, abdominal pain, nausea vomiting few weeks ago, went to hospital and during hospitalization patient had a CT scanthat showed renal calculi, as well as there is some suspicious enlargement of right paratracheal lymph node, for that reason (specially because patient has more than 30-vguv-wvcm smoking history) patient underwent PET scan, PET scan showed some mild FDG activity in the right paratracheal enlarged lymph node as well as 6 some nonenlarged lymph node also have some FDG activity. Patient referred to me for evaluation of this positive PET scan and enlarged lymph node, patient apparently has been seeing Dr. Linares regarding his nephrolithiasis, will be having follow-up scan and further intervention,patient has been feeling fair, patient review of system is as follows ROS: GENERAL: No anorexia, unintentional weight loss, fever, chills, night sweats or any significant fatigue HEENT no headache no visual symptom NECK: No lumps, goiter, pain or significant neck swelling RESPIRATORY: Has on and off chronic cough but no hemoptysis and shortness of breath except on exertion CARDIOVASCULAR: No significant chest pain. GI: No more abdominal discomfort, blood in stools or black stools denies any hematuria or blood in urine except when he passed a urinary stone he noticed some blood that particular day MUSCULOSKELETAL: No new unusual aches and pain HEMATOLOGY/LYMPHOLOGY No prolonged bleeding, easy bruisability or swollen nodes Other Systems review is non contributory PAST MEDICAL HISTORY: Hypertension Coronary artery disease Aortic root dilatation Paroxysmal atrial fibrillation Obstructive sleep apnea COPD Dyslipidemia AV block Nephrolithiasis History of nicotine addiction PAST SURGICAL HISTORY: Cholecystectomy EGD/colonoscopy SOCIAL HISTORY: He quit smoking in 2008, has 50+ pack-year smoking history Used to drink socially He is lives with his Used to work in construction FAMILY HISTORY: Noncontributory MEDICATIONS: Current Outpatient Medications: amLODIPine (NORVASC) 5 mg tablet, Take 1 tablet (5 mg total) by mouth 1 (one) time each day., Disp:, Rfl: atorvastatin (LIPITOR) 80 mg tablet, Take 1 tablet (80 mg total) by mouth 1 (one) time each day., Disp: 90 each, Rfl: 3 buPROPion SR (WELLBUTRIN SR) 150 mg 12 hr tablet, Take 1 tablet (150 mg total) by mouth 1 (one) time each day. Do not crush, chew, or split., Disp: , Rfl: cholecalciferol (Vitamin D3) 50 mcg (2,000 unit) capsule, Take 2 capsules (4,000 Units total) by mouth 1 (one) time each day., Disp: , Rfl: coenzyme Q-10 100 mg capsule, Take 1 capsule (100 mg total) by mouth 1 (one) time each day., Disp: , Rfl: FLUoxetine (PROzac) 10 mg capsule, Take 1 capsule (10 mg total) by mouth 1 (one) time each day., Disp: , Rfl: FLUTICASONE PROPIONATE NASL, Administer into affected nostril(s) 1 (one) time each day., Disp: , Rfl: isosorbide mononitrate (IMDUR) 30 mg 24 hr tablet, Take 1 tablet (30 mg total) by mouth 1 (one) time each day. Do not crush or chew., Disp: 30 each, Rfl: 11 multivitamine, geriatric, (Multivitamin 50 Plus) tablet, Take 1 tablet by mouth 1 (one) time each day., Disp: , Rfl: rivaroxaban (XARELTO) 15 mg tablet, Take 1 tablet (15 mg total) by mouth 1 (one) time each day. Take with food., Disp: , Rfl: tamsulosin (FLOMAX) 0.4 mg 24 hr capsule, Take 1 capsule (0.4 mg total) by mouth 1 (one) time each day with breakfast. Capsules should be taken 30 minutes following the same meal each day., Disp: , Rfl: traMADoL (ULTRAM) 50 mg tablet, Take 1 tablet (50 mg total) by mouth every 8 (eight) hours if needed for severe pain., Disp: , Rfl: No Known Allergies PHYSICAL EXAM: Visit Vitals BP 109/75 (BP Location: Left arm, Patient Position: Sitting, BP Cuff Size: Adult) Pulse 79 Temp 36.6 ??C (97.8 ??F) (Temporal) Ht 1.829 m (72 ) Wt 97.1 kg (214 lb) SpO2 93% BMI 29.02 kg/m?? Smoking Status Former BSA 2.19 m?? ECOG 0-1 APPEARANCE: Alert and oriented in no acute distress EYES: nonicteric sclera pink conjunctiva ORAL CAVITY: No erythema or exudates NECK: Neck supple, no significantly enlarged adenopathy, HEART: normal S1 and S2 LUNG: Distant breath sound otherwise clear bilaterally LYMPH NODES: No palpable superficial adenopathy ABDOMEN: Obese, distended, soft, nontender and no organomegaly appreciated. EXTREMITIES: No significant edema, erythema or tenderness LABS: PET CT scan showed Enlarged right paratracheal lymph node with mildly FDG activity. There are also few nonenlarged lymph node with mild FDG activity in cervical area which are nonspecific, could be reactive/inflammatory Heterogeneous mildly increased FDG activity throughout the prostate gland ASSESSMENT 1. Lymphadenopathy 2. Abnormal positron emission tomography (PET) scan After reviewing history physical and scan, patient has mild right paratracheal lymph node FDG activity as well as some nonspecific mild FDG activity in nonenlarged cervical lymph node, most likely these are reactive lymphadenopathy but because patient has history of more than 35-terp-hjan smoking, I would like him to be evaluated by Dr. Yamileth Pacheco for possible tissue sampling versus follow-up with scan I discussed with the patient and his about his abdominal scan as well as FDG activity in prostate gland could be suggestive of low-grade prostate malignancy or prostatitis etc. but since patienthas been seeing Dr. Linares (urologist), I am not concerned about further intervention. Patient also have some hypertrophy of bladder that could be due to nephrolithiasis but I will defer to Dr. Linares,question of cystoscopy I explained patient and his in detail about PET scan finding and rationale of sending him to , I told patient and his to continue close follow-up with Dr. Linares PLAN: I will see him back in couple months but earlier if any issues, please call me for any question Shahbaz George MD cc: Jack Ahumada MD documented in this encounter Plan of Treatment Upcoming Encounters Date Type Department Care Team (Late st Contact Info) Description 09/04/2025 9:40 AM EDT Office Visit [facility] [address] [facility] [address] [place] [address] Janeth Keller NP [address] [facility] [address] [place] [address] 10/12/2025 8:30 AM EST Office Visit [facility] Hematology Oncology [address] [place] [phone] Shahbaz George MD [address] [place] [address] Scheduled Referrals Name Type Priority Associated Diagnoses Order Schedule Ambulatory referral to Thoracic Surgery Outpatient Referral Routine Lymphadenopathy Abnormal positron emission tomography (PET) scan Expected: 09/04/2025, Expires: 08/21/2026 documented as of this encounter Visit Diagnoses Diagnosis Lymphadenopathy Enlargement of lymph nodes Abnormal positron emission tomography (PET) scan documented in this encounter Orders Outpatient Referral Count Last Ordered Date Fir st Ordered Date AMB REFERRAL TO HEMATOLOGY / ONCOLOGY 1 documented in this encounter Care Teams Physical Security Manager Relationship Specialty Start Date End Date Jack Ahumada MD [address] [place] [id number] PCP - General Internal Medicine 08/07/25 documented as of this encounter
--- NOTE | 2025-08-21 13:34 | HO.NEPHOV ---
Vital Signs 08/21/25 13:37 Height 6 ft Weight 214 lb 6 oz BMI 29.1 BP 90/62 Blood Pressure Location Lt brachial Position Sitting Pulse 92 Pulse Source Pulse Oximeter Pulse Oximetry (%) 93 Oxygen Delivery Method Room Air Intake Visit Reasons: -[facility] Commissioned Police Officer Required: No Accompanied by: Self / Same As Patient Allergies No Known Allergies Allergy (Verified 08/21/25 13:37) HPI Comments Details: Vitaliy was seen in follow-up of his chronic kidney disease. He has history of hypertension and his blood pressure is well controlled on the current medication regimen. He has chronic AFib and aortic root dilatation. He is not a diabetic. He has history of coronary artery disease needing stenting. He does not have any history of congestive heart failure, CVA, SWAPNA, carotid stenosis or peripheral arterial disease. He is not a smoker. He has no history of significant proteinuria. He denies taking excess nonsteroidal anti-inflammatories. His renal functions have been stable. He recently had right sided renal calculus and was seen by Dr Linares. He also had lymphnodes and had undergone PET and oncology consult- going for biopsy. [facility] Medical History (Updated 08/21/25 @ 13:47 by Anjel Hernandez MD) Sinus node dysfunction Pure hypercholesterolemia Prostatism Periodic limb movement disorder Obstructive sleep apnea Essential (primary) hypertension Dyspnea on exertion Displacement of lumbar intervertebral disc without myelopathy Depressive disorder Chronic kidney disease Chronic atrial fibrillation Aortic root dilatation Abdominal aortic aneurysm Surgical History History of cholecystectomy History of coronary artery stent placement History of back surgery Family History Father Heart disease Hypertension Sister Diabetes Social History Alcohol intake: never Patient Tobacco Use Status: Former Tobacco user Review of Systems Const All systems reviewed & are unremarkable except as noted in HPI and below Physical Exam Vital Signs: Last Vital Signs Pulse 92 08/21/25 13:37 BP 90/62 08/21/25 13:37 Pulse Ox 93 08/21/25 13:37 Oxygen Delivery Method Room Air 08/21/25 13:37 BMI result Body Mass Index 29.1 Const General: comfortable and no acute distress Orientation/consciousness: patient oriented x3 HEENT Head: Yes normocephalic Mouth: Normal oral and palatal mucosa present Eyes EOM: EOMs intact bilaterally Neck Neck: Yes supple Resp Auscultation: clear to auscultation bilaterally Cardio Jugular venous distension: no JVD Rate: regular rate GI Palpation (GI): Soft to palpation Auscultation: normal bowel sounds General: Yes no CVA tenderness Back/Spine/Pelvis Back: no CVA tenderness Skin General skin exam: no rashes or lesions noted Neuro General: patient oriented x3 and moves all extremities Extrem General: Yes no pedal edema Assessment & Plan Assessment & Plan (1) CKD (chronic kidney disease) stage 3, GFR 30-59 ml/min: Code(s): N18.30 - Chronic kidney disease, stage 3 unspecified Category: Medical Qualifiers: Chronic kidney disease stage 3 subtype: stage 3a (GFR 45-59) Qualified Code(s): N18.31 - Chronic kidney disease, stage 3a (2) Hypertension: Code(s): I10 - Essential (primary) hypertension Category: Medical Qualifiers: Hypertension type: primary hypertension Qualified Code(s): I10 - Essential (primary) hypertension (3) Renal calculus: Code(s): N20.0 - Calculus of kidney Category: Medical Plan Vitaliy has stage III CKD from vascular disease. He is known to have coronary artery disease. His renal functions have been stable. He had Doppler of renal arteries done in the past which did not show any renal artery stenosis. He needs to follow-up with vascular surgery regarding aneurysm. His blood pressure is maintained at goal. He is on statins. He needs Urology and Oncology follow up. I shall consider switching him from Amlodipine to HCTZ/K citrate when his current issues are resolved. I did not make any medication changes today. Follow-up blood work ordered. Answered all questions Orders: Orders Uric Acid 6 Months I10 - Essential (primary) hypertension, N18.31 - Chronic kidney disease, stage 3a, N20.0 - Calculus of kidney Electrolytes 6 Months I10 - Essential (primary) hypertension, N18.31 - Chronic kidney disease, stage 3a, N20.0 - Calculus of kidney Blood Urea Nitrogen 6 Months I10 - Essential (primary) hypertension, N18.31 - Chronic kidney disease, stage 3a, N20.0 - Calculus of kidney Creatinine 6 Months I10 - Essential (primary) hypertension, N18.31 - Chronic kidney disease, stage 3a, N20.0 - Calculus of kidney Calcium 6 Months I10 - Essential (primary) hypertension, N18.31 - Chronic kidney disease, stage 3a, N20.0 - Calculus of kidney Coding Level of Care Code Est Pt Level 4 (60505) Diagnoses Stage 3a chronic kidney disease N18.31 Chronic kidney disease stage 3 subtype: stage 3a (GFR 45-59) Primary hypertension I10 Hypertension type: primary hypertension Renal calculus N20.0
[2025-08-21 13:37] VITALS: BP 90/62; PULSE 92; O2SAT 93; BMI 29.1
--- OUTSIDE RECORDS SUMMARY | 2025-08-21 14:49 | XMS_ITS | Patient Health Record ---
Author Organization [facility] Address [address] [place] [address] Care Team Providers Care Pc Analyst Name Role Phone Mica SERNA, Desiree Amaya Primary Care Provider Unav ailable Black, Meaghan Unavailable [phone] Reason For Referral No Information Medications Medication SIG (Take, Route, Frequency, Duration) Notes Start Date End Date Status Multivitamin Active CoQ-10 200 MG Orally Once a day Active Aspirin 325 MG 1 tablet Orally Once a day Active Atorvastatin Calcium 20 MG 1 tablet Oral ly Once a day Active Triamterene-HCTZ 37.5-25 MG Orally Once a day Active ZyrTEC Active Glucosamine Chondr 1500 Complx Active Social History Tobacco use other than smoking: Question Answer Notes Are you an other tobacco user? No Problems Problem Type SNOMED Code ICD Code Onset Dates Problem Status W/U Status Risk Notes Problem Acquired hallux valgus (59619703) Hallux valgus (acquired), left foot (M20.12) Active confirmed Problem Acquired hallux valgus (83190462) Hallux valgus (acquired), right foot (M20.11) Active confirmed Problem Acquired hammer toe of right foot ([id number] 105) Other hammer toe(s) (acquired), right foot (M20.41) Active confirmed Problem Acquired hammer toe of left foot ([id number] 103) Other hammer toe(s) (acquired), left foot (M20.42) Active confirmed Plan Of Treatment No Information Insurance Providers Payer Name Payer Address Payer Phone Subscriber Number Group Number Insured Name Patient Relationship to Insured Coverage Start Date Coverage End Date [employer] [address] [place] [address] [phone] [id number] Chelsea Serra Spouse - patient is the spouse of the insured Medical (General) History Medical History History ICD Code Arthritis Back,Hip,and Knee pain CAD (Cholesterol) Measles Mumps Chicken pox High blood pressure Aorta - enlarged Surgical History Surgery Date(Month/Year) back surgery
--- OUTSIDE RECORDS SUMMARY | 2025-08-21 14:49 | XMS_ITS | Patient Health Record ---
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 Attached last locked note from 11/2024. Note dated 06/29/[address] Dr. Calderon on vacation, will send the note once locked. The following is copied from the unlocked note......, ' Patient present with several episodes of crampy lower abdominal pain - that turns into nausea and vomiting. Throat feels burned afterwards - does not raise a lot when vomiting. Most recent episode was this morning and is left him feeling wiped out. He has been more fatigued lately and also having some increased shortness of breath. notes that he is less tolerant of exertion due to his breathing. He has not noticed any blood in the stool or urine. ' Faxed all to [facility] at [phone], Jane BRENNAN [place] 07/08/2025 03:18:22 PM > refaxed again as pt encounter states [facility] never received a request for an appointment faxed to F: [phone], Paulina BRENNAN P Admin 07/09/2025 07:56:54 AM > Dr Calderon locked note from 06/29>all info refaxed to [facility] at [phone] Referral Priority Urgent Reason (Faxed 07/07/25) Appt New patient urgent Please send abdominal CT Diagnosis 1 Kidney stone (N20.0) Referral Organization [facility] [employer] Referring Provider First Name LUCRECIA Referring Provider Last Name YUMIKO Referring Provider Speciality Internal M edicine Referred Provider NATHALY OSPINA Referred Provider Specialty Urology General Notes Andreina BRENNAN Medical Records Library Professor 07/07/2025 10:38:19 AM > Urgent request for Urology. Attached last locked note from 11/2024. Note dated 06/29/[address]. Calderon on vacation, will send the note once locked. The following is copied from the unlocked note......, ' Patient present with several episodes of crampy lower abdominal pain - that turns into nausea and vomiting. Throat feels burned afterwards - does not raise a lot when vomiting. Most recent episode was this morning and is left him feeling wiped out. He has been more fatigued lately and also having some increased shortness of breath. notes that he is less tolerant of exertion due to his breathing. He has not noticed any blood in the stool or urine. ' Faxed all to [facility] at [phone]., Paulina BRENNAN P Admin 07/20/2025 01:32:34 PM > per incoming document p thas appt on 07/[address] [facility] [facility] [address] Timur Ospina>no referral required>faxed to [facility] at [phone]>encounter closed Referral Priority Urgent Referral Appointment Date 07/20/2025 Reason 08/06/25 w appt Urg ent eval Abnormal PET scAN please send ct scan and PET Diagnosis 1 Lymphadenopathy (R59 .1) Referral Organization [facility] Referring Provider First Name LUCRECIA Referring Provider Last Name YUMIKO Referring Provider Speciality Internal M edicine Referred Provider DREW CAMPBELL Referred Provider Specialty Hematology/O ncology General Notes HOLD, Paulina BRENNAN Adm in 08/05/2025 04:17:00 PM > faxed medical referral, note and most recent labs to [phone] requesting a STAT appt please>also faxed is, 07/04/25CTChest, 07/04/25CTAbd/Pelvis, NO REFERRAL REQUIRED Referral Priority Stat MEDICATIONS Medication SIG (Take, Route, Frequency, Duration) Notes Start Date End Date Status Tamsulosin HCl 0.4 MG 1 capsule Orally O nce a day 07/13/2025 Active Xarelto 15 MG 1 tablet with food O rally Once a day for 90 days Active Atorvastatin Calcium 80 MG 1 tablet Oral ly Once a day for 90 day(s) 12/03/2024 Active OneTouch Verio - as directed In Vitro once a day for 90 days 01/22/2024 Active buPROPion HCl ER (XL) 150 MG 1 tablet in the morning Orally Once a day for 180 days Active Fluticasone Propionate 50 MCG/ACT spray 2 spray by intranasal route every day in each nostril Nasal 05/11/2022 Active FLUoxetine HCl 10 MG 1 capsule Orally On ce a day for 90 days Active Magnesium 125 MG as directed Orally Active traMADol HCl 50 MG 1 tablet as needed O rally every 8 hrs for 10 days 04/16/2025 Active amLODIPine Besylate 5 MG 1 tablet Orally Once a day Active OneTouch Delica Plus [id number] - as directed applied to skin once a day for 90 days 01/22/2024 Active OneTouch Verio Flex System w/Device as directed applied to skin once a day for 90 day(s) 01/22/2024 Active Ketoconazole 2 % as directed [...] W/U Status Risk SNOMED Code Notes Problem Obstructive sleep apnea (G47.33) Active confirmed 10868205 Problem Essential (primary) hypertension (I10) Active confirmed 56437025 Problem Paroxysmal atrial fibrillation (I48.0) Active confirmed 746375737 Problem Mixed hyperlipidemia (E78.2) Active confirmed 569266835 Problem Acute recurrent frontal sinusitis (J01.11) Active confirmed 56413271427048657 Problem Kidney stone (N20.0) Active confirmed 77011980 Problem Enlarged prostate (N40.0) Active confirmed 581932211 Problem Acute non-recurrent frontal sinusitis (J01.10) Active confirmed 45692741 Problem Degenerative lumbar disc (M51.36) Active confirmed 69774428 Problem Prediabetes (R73.03) Active confirmed 633874948 Problem Disc degeneration, lumbar (M51.36) Active confirmed 44404129 Problem Stage 3b chronic kidney disease (CKD) (N18.32) Active confirmed 414506381 Problem Aneurysm of ascending aorta without rupture (I71.21) Active confirmed 175596828 Problem Persistent depressive disorder (F34.1) Active confirmed 2252026028 Problem 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) Active confirmed 368833104 VITAL SIGNS Blood pressure diastolic 84 mm Hg 08/05/2025 Height 72.00 in 08/05/2025 Blood pressure systolic 124 mm Hg 08/05/2025 Weight 216.0 lbs 08/05/2025 BMI 29.29 kg/m2 08/05/2025 Encounters Encounter Location Date Provider Diagnosis [address] [address] 09/18/2024 [place] [phone] 09/18/2024 [facility] Pain of right great toe M79.674 and Essential (primary) hypertension I10 [address] [address] 12/03/2024 [facility] Acute recurrent fron maida sinusitis J01.11 ; Essential (primary) hypertension I10 and Mixed hyperlipidemia E78.2 [place] [id number] 06/29/2025 [place] [id number] 06/29/2025 [facility] Acute abdominal pain R10.9 ; Nausea and vomiting, unspecified vomiting type R11.2 ; Aneurysm of ascending aorta without rupture I71.21 ; Essential (primary) hypertension I10 ; Stage 3b chronic kidney disease (CKD) N18.32 and Shortness of breath R06.[address] [place] [address] 06/30/2025 [facility] [address] [place] [address], [place] [address] 06/30/2025 [facility] [address] [place] [address], [place] [address] 07/06/2025 [facility] Saccular aneurysm I6 7.1 and Kidney stone N20.[address] [place] [address] 07/08/[address] [place] [address] 07/12/[address] [place] [address] 07/13/[address] [place] [address] 07/13/[address] [place] [address] 07/13/2025 [facility] Mediastinal mass J98 .59 ; Kidney stone N20.0 ; Aneurysm of ascending aorta without rupture I71.21 ; Saccular aneurysm I67.1 ; Essential (primary) hypertension I10 and Paroxysmal atrial fibrillation I48.[address] [place] [address] 07/31/2025 [facility] Mediastinal mass J98 .[address] [place] [address] 08/05/[address] [place] [address] 08/05/2025 [facility] Lymphadenopathy R59. 1 ; Enlarged prostate N40.0 ; Kidney stone N20.0 and Saccular aneurysm I67.1 ASSESSMENTS Encounter Date Diagnosis Assessment Notes Treatment Notes Treatment Clinical Notes Section Notes 08/05/2025 Enlarged prostate (ICD-10 - N40.0) 1. Lymphadenopathy: ? possible lymphoma -mildly + PEt on [...] If not passed it we will consider retrieval/lithot ripsy then 4. Saccular aortic aneurysm: Vascular reviewed and recommended 6-month follow-up. He did not feel he needed surgery at this time 08/05/2025 Lymphadenopathy (ICD-10 - R59.1) 1. Lymphadenopathy: ? possible lymphoma -mildly + PEt on [...] If not passed it we will consider retrieval/lithot ripsy then 4. Saccular aortic aneurysm: Vascular reviewed and recommended 6-month follow-up. He did not feel he needed surgery at this time 07/31/2025 Mediastinal mass (ICD-10 - J98.59) 07/13/2025 Mediastinal mass (ICD-10 - J98.59) 1. [...] fibrillation: No obvious recurrence. Continues on Xarelto 07/06/2025 Saccular aneurysm (ICD-10 - I67.1) 07/06/2025 Kidney stone (ICD-10 - N20.0) 06/29/2025 Nausea and vomiting, unspecified vomiting type (ICD-10 - R11.2) 1. Abdominal pain with accompanying nausea and vomiting: Question possible hernia. Will check a CT of the abdomen and pelvis 2. Ascending aortic aneurysm: Echo last year was the last time study. Will do a CT of the chest at present to assess this as well as his shortness of breath symptoms 3. Hypertension: Stable on present therapy. No changes made tonight 4. Chronic kidney disease: Most recent labs have been stable and improved. Will recheck today prior to CT scanning 5. Shortness of breath: Will check CT scan as above and will also check laboratory studies and rule out anemia or metabolic abnormalities 06/29/2025 Acute abdominal pain (ICD-10 - R10.9) 1. Abdominal pain with accompanying nausea and vomiting: Question possible hernia. Will check a CT of the abdomen and pelvis 2. Ascending aortic aneurysm: Echo last year was the last time study. Will do a CT of the chest at present to assess this as well as his shortness of breath symptoms 3. Hypertension: Stable on present therapy. No changes made tonight 4. Chronic kidney disease: Most recent labs have been stable and improved. Will recheck today prior to CT scanning 5. Shortness of breath: Will check CT scan as above and will also check laboratory studies and rule out anemia or metabolic abnormalities 09/18/2024 Pain of right great toe (ICD-10 - M79.674) 1. Right great toe pain: Looks most consistent with gout which she has a history of. Will treat with a Medrol Dosepak and he will let me know if not improving readily 2. Hypertension: Stable on present therapy. No changes made today 09/18/2024 Essential (primary) hypertension (ICD-10 - I10) 1. Right great toe pain: Looks most consistent with gout which she has a history of. Will treat with a Medrol Dosepak and he will let me know if not improving readily 2. Hypertension: Stable on present therapy. No changes made today 12/03/2024 Acute recurrent frontal sinusitis (ICD-10 - J01.11) 1. Sinusitis: Appears viral. Will treat with a Medrol Dosepak and encourage fluids. He will let me know if he is not improving 2. Hypertension: Stable on present regimen. No changes made today 3. Hyperlipidemia: Stable on atorvastatin which was renewed today 12/03/2024 Essential (primary) hypertension (ICD-10 - I10) 1. Sinusitis: Appears viral. Will treat with a Medrol Dosepak and encourage fluids. He will let me know if he is not improving 2. Hypertension: Stable on present regimen. No changes made today 3. Hyperlipidemia: Stable on atorvastatin which was renewed today 08/05/2025 Kidney stone (ICD-10 - N20.0) 1. Lymphadenopathy: ? possible lymphoma -mildly + PEt on [...] If not passed it we will consider retrieval/lithot ripsy then 4. Saccular aortic aneurysm: Vascular reviewed and recommended 6-month follow-up. He did not feel he needed surgery at this time 07/13/2025 Aneurysm of ascending aorta without rupture [...] fibrillation: No obvious recurrence. Continues on Xarelto 12/03/2024 Mixed hyperlipidemia (ICD-10 - E78.2) 1. Sinusitis: Appears viral. Will treat with a Medrol Dosepak and encourage fluids. He will let me know if he is not improving 2. Hypertension: Stable on present regimen. No changes made today 3. Hyperlipidemia: Stable on atorvastatin which was renewed today 06/29/2025 Aneurysm of ascending aorta without rupture (ICD-10 - I71.21) 1. Abdominal pain with accompanying nausea and vomiting: Question possible hernia. Will check a CT of the abdomen and pelvis 2. Ascending aortic aneurysm: Echo last year was the last time study. Will do a CT of the chest at present to assess this as well as his shortness of breath symptoms 3. Hypertension: Stable on present therapy. No changes made tonight 4. Chronic kidney disease: Most recent labs have been stable and improved. Will recheck today prior to CT scanning 5. Shortness of breath: Will check CT scan as above and will also check laboratory studies and rule out anemia or metabolic abnormalities 08/05/2025 Saccular aneurysm (ICD-10 - I67.1) 1. Lymphadenopathy: ? possible lymphoma -mildly + PEt on [...] If not passed it we will consider retrieval/lithot ripsy then 4. Saccular aortic aneurysm: Vascular reviewed and recommended 6-month follow-up. He did not feel he needed surgery at this time 07/13/2025 Saccular aneurysm (ICD-10 - I67.1) 1. [...] fibrillation: No obvious recurrence. Continues on Xarelto 06/29/2025 Essential (primary) hypertension (ICD-10 - I10) 1. Abdominal pain with accompanying nausea and vomiting: Question possible hernia. Will check a CT of the abdomen and pelvis 2. Ascending aortic aneurysm: Echo last year was the last time study. Will do a CT of the chest at present to assess this as well as his shortness of breath symptoms 3. Hypertension: Stable on present therapy. No changes made tonight 4. Chronic kidney disease: Most recent labs have been stable and improved. Will recheck today prior to CT scanning 5. Shortness of breath: Will check CT scan as above and will also check laboratory studies and rule out anemia or metabolic abnormalities 06/29/2025 Stage 3b chronic kidney disease (CKD) (ICD-10 - N18.32) 1. Abdominal pain with accompanying nausea and vomiting: Question possible hernia. Will check a CT of the abdomen and pelvis 2. Ascending aortic aneurysm: Echo last year was the last time study. Will do a CT of the chest at present to assess this as well as his shortness of breath symptoms 3. Hypertension: Stable on present therapy. No changes made tonight 4. Chronic kidney disease: Most recent labs have been stable and improved. Will recheck today prior to CT scanning 5. Shortness of breath: Will check CT scan as above and will also check laboratory studies and rule out anemia or metabolic abnormalities 07/13/2025 Essential (primary) hypertension (ICD-10 - I10) [...] fibrillation: No obvious recurrence. Continues on Xarelto 06/29/2025 Shortness of breath (ICD-10 - R06.02) 1. Abdominal pain with accompanying nausea and vomiting: Question possible hernia. Will check a CT of the abdomen and pelvis 2. Ascending aortic aneurysm: Echo last year was the last time study. Will do a CT of the chest at present to assess this as well as his shortness of breath symptoms 3. Hypertension: Stable on present therapy. No changes made tonight 4. Chronic kidney disease: Most recent labs have been stable and improved. Will recheck today prior to CT scanning 5. Shortness of breath: Will check CT scan as above and will also check laboratory studies and rule out anemia or metabolic abnormalities PLAN OF TREATMENT Future Test Test Name Order Date Rapid Influenza A/B 12/18/2023 Insurance Providers Payer Name Payer Address Payer Phone Subscriber Number Group Number Insured Name Patient Relationship to Insured Coverage Start Date Coverage End Date [employer] [address] [place] [phone] [id number] LANEY CHRISTINA Self - patient is the insured MEDICAL (GENERAL) HISTORY Medical History History ICD Code Disease : Chronic kidney disease, Disease : Sleep apnea, Disease : thoracic aortic aneurysm, Atrial fibrillation, Elevated lipids, Hypertension, Chronic atrial fibrillation I48.20 KAYLA - did not tolerate CPAP Surgical History Surgery Date(Month/Year) Acute cholecystitis, Sx_Procedure : Chol ecystectomy Disease : Lumbar Disc diseas e, Sx_Procedure : Laminectomy x 2 Dr Marquez
--- OUTSIDE RECORDS SUMMARY | 2025-08-21 14:50 | XMS_ITS | Clinical Summary ---
Author Organization [address] Address [address] [place] [phone] Phone Care Team Providers Care Sports Writer Name Role Phone Jack Ahumada MD Primary Care Provider [phone] Allergies No known active allergies Medications atorvastatin (LIPITOR) 80 mg tabletIndications: Coronary artery disease involving [place] coronary artery of [place] heart without angina pectoris,Hyperlipi demia, unspecified hyperlipidemia type Take 1 tablet (80 mg total) by mouth 1 (one) time each day. 90 each 3 4 025 Active amLODIPine (NORVASC) 5 mg tablet Take 1 tablet (5 mg total) by mouth 1 (one) time each day. Active buPROPion SR (WELLBUTRIN SR) 150 mg 12 hr tablet Take 1 tablet (150 mg total) by mouth 1 (one) time each day. Do not crush, chew, or split. Active FLUoxetine (PROzac) 10 mg capsule Take 1 capsule (10 mg total) by mouth 1 (one) time each day. Active rivaroxaban (XARELTO) 15 mg tablet Take 1 tablet (15 mg total) by mouth 1 (one) time each day. Take with food. Active multivitamine, geriatric, (Multivitamin 50 Plus) tablet Take 1 tablet by mouth 1 (one) time each day. Active cholecalciferol (Vitamin D3) 50 mcg (2,000 unit) capsule Take 2 capsules (4,000 Units total) by mouth 1 (one) time each day. Active FLUTICASONE PROPIONATE NASL Administer into affected nostril(s) 1 (one) time each day. Active coenzyme Q-10 100 mg capsule Take 1 capsule (100 mg total) by mouth 1 (one) time each day. Active traMADoL (ULTRAM) 50 mg tablet Take 1 tablet (50 mg total) by mouth every 8 (eight) hours if needed for severe pain. Active tamsulosin (FLOMAX) 0.4 mg 24 hr capsule Take 1 capsule (0.4 mg total) by mouth 1 (one) time each day with breakfast. Capsules should be taken 30 minutes following the same meal each day. Active isosorbide mononitrate (IMDUR) 30 mg 24 hr tablet Take 1 tablet (30 mg total) by mouth 1 (one) time each day. Do not crush or chew. 30 each 11 026 Active Active Problems Problem Noted Date Diagnosed Date Abnormal electrocardiogram 07/30/2024 Aortic ectasia ([facility] V24) 11/01/2023 Overview (07/30/2025): Last Assessment & Plan: The patient's most recent echocardiogram was completed November 2021 revealing ascending aorta at 4.5 cm; he is due for repeat echocardiogram for reevaluation of this. Blood pressure remains well-controlled and he continues to abstain from cigarette smoking. They will continue to follow and refer as needed. Secondary hypercoagulable state ([facility] V24) Status post coronary artery stent placement 05/2023 First degree AV block 04/27/2023 Assessment & Plan (08/09/2025 11:00 AM EDT): The patient has a fairly prolonged WI interval on EKG in office today. This is unchanged when compared to prior EKGs. Continue to monitor. Sinus bradycardia 04/27/2023 Coronary arteriosclerosis 09/11/2022 Overview (08/09/2025): -Cardiac catheterization 07/2022 showed left main with luminal irregularities, mild diffuse disease of the LAD, moderate diffuse disease of the circumflex, and heavily calcified 70% stenosis in the distal subsection of the proximal RCA and 99% stenosis in the beginning of the distal RCA, receiving drug-eluting stents to each RCA lesion -Most recent echocardiogram 01/2024 showed LVEF normal 55-60%, normal LV size, thickness without wall motion abnormalities, mildly dilated left atrium, normal right atrial size, normal RV size and function, without hemodynamically significant valve disease, and dilated aorta at the sinus of 4.1 cm and ascending aorta 4.6 cm, unchanged from prior echoes Assessment & Plan (08/09/2025 10:59 AM EDT): Patient had cardiac catheterization 3 years ago which showed RCA disease receiving drug-eluting stents. The remainder of his coronary tree had nonobstructive disease. He now reports exertional breathlessness and hypoxemia. However, he can improve his SpO2 by taking deep breaths. I wonder if he possibly has some atelectasis due to his recent decrease in physical activity on account of not only his breathlessness but also his back and leg pain. He is encouraged to ensure that he is taking deep breaths and coughing multiple times throughout the day. He will do so and follow his hypoxemia along. Should this fail to improve, in the absence of clinical evidence of hypervolemia, would follow-up with his PCP. We discussed investigation for recurrent ischemia including the possibility of a stress test. He would like to avoid this if possible. We discussed how the recommended management of coronary artery disease and symptom mitigation according to research and guidelines relies heavily on medication therapy. Therefore, if we can improve the patient's symptoms, there may not be any additional data gleaned from a stress test. Further, should the patient stress test returned normal and he still has breathlessness, it does not eliminate the need to adjust cardiac medications to mitigate his symptoms. Together with shared decision making, we are starting Imdur 30 mg daily as a coronary vasodilator/antianginal. Side effects discussed with the patient. Should his symptoms fail to improve, he would agree to a stress test. Chest pain precautions reviewed with the patient Clinically, he appears euvolemic and his most recent echocardiogram from about 18 months ago was unrevealing. He does not have any murmurs on physical exam. Therefore, updating his echocardiogram is not likely to yield much in the way of new data right now. So we will hold off on this. The patient understands and agrees VUONG (dyspnea on exertion) 01/12/2021 Overview (07/30/2025): Last Assessment & Plan: As above, improved from previous. The patient is a former smoker with normal pulmonary function testing completed 07/2022. Aortic root dilatation ([facility] V24) 01/12/2021 Thoracic ascending aortic aneurysm ([facility] V24) 07/22/2020 Overview (08/09/2025): - followed by cardiothoracic surgery - 4.6cm 01/2024 - CT chest measures as aneurysm 4.5 x 4.7 cm 06/2025 Assessment & Plan (08/09/2025 10:53 AM EDT): The patient's aortic size is stable and comanaged by cardiothoracic surgery. He is planned for another CT chest in 6 months from his last as ordered by Dr. Zheng from CT surgery. PAF (paroxysmal atrial fibri llation) ([facility] V24, [facility] V28) 11/08/2018 Overview (08/09/2025): Anticoagulated with Xarelto Assessment & Plan (08/09/2025 10:54 AM EDT): The patient is in sinus rhythm today. He is not on AV daquan blocking agents given his propensity towards bradycardia with a first-degree AV block. Clinically, he has not had any symptoms referable to recurrent atrial fibrillation. He has not had any bleeding issues. He will continue his anticoagulation at current dose. Should he require any surgical or interventional procedures, he may interrupt his anticoagulation at the discretion of the performing team and resume postprocedure when deemed safe. Obstructive sleep apnea 07/08/2017 [place] (07/30/2025): [facility] [place]: Date 07/03/2017; Wt 200# SE 83%; [...] 95%. For the entire study, PLMs ~157. Last Assessment & Plan: The patient remains noncompliant with CPAP and is aware of the long-term potential implications of this in relation to his cardiac health. He declines further referral to sleep medicine or repeat sleep study; we will continue to readdress this. AAA (abdominal aortic aneurysm) ([facility] V24) Overview (07/30/2025): Follows with Dr. Rankin, 3.2cm Primary hypertension 2011 Assessment & Plan (08/09/2025 11:00 AM EDT): The patient's blood pressure is well-controlled on his current dose of calcium channel timoteo. Follow with addition of Imdur, though this likely will not significantly reduce his blood pressure Sinoatrial node dysfunction (CMS/HCC V24, CMS/HC C V28) 07/19/2007 Overview (07/30/2025): RAN elena, CARDIOLOGY SAW PT 2003 Pure hypercholesterolemia 01/25/2006 Assessment & Plan (08/09/2025 11:01 AM EDT): The patient's LDL is reasonably well-controlled on last check from 01/2025. Ideally, given his known CAD, we would like his LDL less than 70. He is currently at 71. If possible, would like to drive his LDL lower to less than 55. For now, continue statin at current dose. If his LDL remains elevated at his next check, would consider transition to rosuvastatin 40 mg daily Resolved Problems Problem Noted Date Diagnosed Date Resolved Date Chronic atrial fibrillation (CMS/HCC V24, CMS/HCC V28) 02/12/2018 08/09/2025 Encounters Date Type Department Care Team Description 08/21/2025 10:45 AM EDT Office Visit [facility] Hematology Oncology [address] [place] [phone] Shahbaz George MD Lymphadenopathy; Abnormal positron emission tomography (PET) scan 08/07/2025 8:40 AM EDT Office Visit [facility] Cardiology [facility] [address] [place] [phone] Janeth Keller NP Primary hypertension (Primary Dx); Aneurysm of ascending aorta without rupture (CMS/HCC V24); PAF (paroxysmal atrial fibrillation) (CMS/HCC V24, CMS/HCC V28); Coronary arteriosclerosis; First degree AV block; Pure hypercholesterolemia 08/07/2025 Telephone [facility] Hematology Oncology [address] [place] [phone] Jack Ahumada MD 06/09/[address] [place] [phone] Janeth Keller NP from Last 3 Months Surgical History Surgery Date Site/Laterality Comments COLONOSCOPY 02/20/2018 PROCEDURE: HISTORICAL COLONOSCOPY; COMMENT: multiple adenomas; tics and hemorrhoids; repeat in 3 yrs UPPER GASTROINTESTINAL ENDOSCOPY 02/20/2018 PROCEDURE: WI UPPER GI ENDOSCOPY PERFORMED; COMMENT: distal erosive [...] unspecified not elsewhere classified Sinoatrial node dysfunction (CMS/HCC V24, CMS/HCC V28) 07/19/2007 DX:Sinoatrial node dysfuncti on (HCC); COMMENT: hOLTER ok, CARDIOLOGY SAW PT 2003 Family History Medical [...] Mass Index 29.02 08/21/2025 10:47 AM EDT Plan of Treatment Upcoming Encounters Date Type Department Care Team (Late st Contact Info) Description 09/04/2025 9:40 AM EDT Office Visit [facility] - [address] [place] [phone] Janeth Keller NP [address] [place] [address] 10/12/2025 8:30 AM EST Office Visit [facility] Hematology Oncology [address] [place] [phone] Shahbaz George MD [address] [place] [address] Health Maintenance Due Date Last Done Comments Zoster Vaccines (2 of 3) 09/15/2013 07/21/2013 RSV Immunization Adult Patients (1 - 1-dose 75+ series) 2018 Falls Risk Assessment 11/04/2022 Social Influencers of Health Screening 11/04/2022 Depression Screening 11/26/2024 COVID-19 Vaccine ( season) 2025 11/08/2021, 04/20/2021, 03/16/2021 Influenza Vaccine (#1) 2025 , 08/31/2022, 10/10/2021, Additional history exists Hypertension/CHF/CAD [...] age to complete this topic Meningococcal B Vaccine Aged Out No l onger eligible based on patient's age to complete this topic RSV Immunization Patients Under 20 months Aged Out No longer eligible based on patient's age to complete this topic Varicella Vaccines Aged Out No longer eligible based on patient's age to complete this topic Procedures Procedure Name Priority Date/Time Associated Diagnosis Comments ECG 12-LEAD Routine 08/07/2025 8:42 AM EDT Primary hypertension EXTERNAL CLINICAL LAB Routine 06/29/2025 2:17 PM EDT LIPID PANEL WITH REFLEX TO DIRECT LDL Routine 01/29/2025 9:15 AM EST Coronary artery disease involving [place] coronary artery of [place] heart without angina pectoris Hyperlipidemia, unspecified hyperlipidemia type from Last 3 Months or Most Recently Relevant to Health Maintenance Results * ECG 12 lead (08/07/2025 8:42 AM EDT) Ventricular Rate ECG 61 BPM GEMUSE Atrial Rate 61 BPM GEMUSE P-R Interval 322 ms GEMUSE QRS Duration 94 ms GEMUSE Q-T Interval 390 ms GEMUSE QTc 392 ms GEMUSE P Wave [place] 74 degrees GEMUSE R [place] -31 degrees GEMUSE T [place] 104 degrees GEMUSE ECG Interpretation Sinus rhythm with 1st degree A-V block Left axis deviation T wave abnormality, consider lateral ischemia Abnormal ECG unchanged 07/2024 Confirmed by MD Tayo, Steve ([id number]) on 08/07/2025 12:35:23 PM GEMUSE 08/07/2025 8:42 AM EDT 08/07/2025 12:35 PM EDT Janeth Keller NP ECG ORDERABLES Final Result GEMUSE * External clinical lab (06/29/2025 2:17 PM EDT) [facility] Provider LAB BLOOD ORDERABLES Nargis l Result * Lipid panel with reflex to direct LDL (01/29/2025 9:15 AM EST) Cholesterol 135 0 - 200 mg/dL LAB CHEMISTRY METHOD 01/29/2025 1:05 PM [facility] Triglycerides 70 0 - 150 mg/dL LAB CHEMISTRY METHOD 01/29/2025 1:05 PM EST [facility] HDL 50 >=40 mg/dL LAB CHEMISTRY METHOD 01/29/2025 1:05 PM [facility] LDL Calculated 71 0 - 100 mg/dL LAB CHEMISTRY METHOD 01/29/2025 1:05 PM [facility] VLDL Cholesterol Jason 14 mg/dL LAB CHEMISTRY METHOD 01/29/2025 1:05 PM [facility] Non HDL Chol. (LDL+VLDL) 85 <145 mg/dL LAB CHEMISTRY METHOD 01/29/2025 1:05 PM [facility] Chol/HDL Ratio 2.7 0.0 - 4.4 LAB CHEMISTRY METHOD 01/29/2025 1:05 PM [facility] Blood Venous blood specimen / Unknown Venipuncture / Unknown 01/29/2025 9:15 AM EST 01/29/2025 9:15 AM EST Larisa Pacheco NP LAB BLOOD ORDERABLES Final Result [facility] [address] [place] [address], [place] [phone] from Last 3 Months or Most Recently Relevant to Health Maintenance Insurance [facility] MEDICARE Care Teams Sports Writer Relationship Specialty Start Date End Date Jack Ahumada MD [address] [place] [phone] PCP - General Internal Medicine 08/07/25
== END 2025-08-21 13:56 | disposition home or self-care (01) ==
LOC: HO.HKA 13:31
PROVIDERS: PCP Internal Medicine; Visit Provider Internal Medicine Nephrology
DX: N18.31 Chronic kidney disease, stage 3a (principal); I10 Essential (primary) hypertension; N20.0 Calculus of kidney
CPT/HCPCS: 99214